=== PATIENT | male | born 1995 | race African-American/Black ===

== ENCOUNTER 2020-03-26 07:43 | Inpatient (IN) | payer OTHER, SELFPAY ==
[2020-03-26 08:14] LABS: Hemoglobin 17.6 g/dL (14.0-18.0); Mean Corpuscular HGB CONC 33.4 g/dL (32.0-36.0); Mean Corpuscular Hemoglobin 32.7 pg (27.0-31.0); Mean Corpuscular Volume 98.1 fL (78.0-98.0); Mean Platelet Volume 8.3 fL (7.4-10.4); Platelet Count 189 thou/uL (130-400); RBC Distribution Width 11.9 % (11.5-14.5); Red Blood Cell (RBC) Count 5.36 mill/uL (4.70-6.10); White Blood Cell (WBC) Count 6.7 thou/uL (4.8-10.8)
[2020-03-26] MEDS ORDERED: Dicyclomine 20 MG TAB ONE (08:31)
[2020-03-26 08:33] LABS: Bacteria/HPF None Seen HPF (None Seen); Bilirubin Negative (Negative); Blood, Urine Negative (Negative); Clarity Clear (Clear); Glucose, Urine (Dipstick) Normal (Negative); Ketone, Urine 80 mg/dL (Negative); Leukocyte Negative Leu/uL (Negative); Nitrite Negative (Negative); Protein, Urine (Dipstick) 50 mg/dL (Neg-Trace); RBC/HPF 0-3 HPF (0-3); Specific Gravity, Urine 1.039 (1.002-1.036); Squamous Epithelial 0-3 HPF (0-3); WBC/HPF 0-3 HPF (0-3)
[2020-03-26 08:37] LABS: ALT (SGPT) 50 U/L (8-55); AST (SGOT) 41 U/L (5-34); Albumin 4.9 g/dL (3.5-5.0); Alkaline Phosphatase 62 U/L (40-110); Anion Gap 17 mmol/L (10-20); BUN (Urea Nitrogen) 6 mg/dL (8.9-20.6); Bilirubin, Total 0.6 mg/dL (0.2-1.2); Calc. Creatinine Clearance 0 mL/min (70-130); Calcium 9.9 mg/dL (7.8-10.44); Carbon Dioxide 27 mmol/L (22-29); Chloride 98 mmol/L (98-107); Estimated GFR-MDRD Greater than 90; Globulin 3.6 g/dL (2.4-3.5); Glucose 102 mg/dL (70-105); Potassium 3.5 mmol/L (3.5-5.1); Protein, Total 8.5 g/dL (6.0-8.3); Sodium 138 mmol/L (136-145)
[2020-03-26 08:46] LABS: Band 6 % (5-11); Lymphocytes 9 % (21-51); MDiff Complete? YES; Monocytes 11 % (0-10); Neutrophil 73 % (42-75); Platelet Morphology Comment Appears Adequate; Polychromasia SLIGHT = 2-3 cells (100X) (0-2/hpf)
--- NOTE | 2020-03-26 09:28 | ULT ---
EXAM: US Gallbladder RUQ CLINICAL HISTORY: Right upper quadrant pain. COMPARISON: None. FINDINGS: Pancreas: Head and proximal pancreatic body have a normal echotexture. The remainder the pancreas is obscured by bowel gas. Liver:Hepatic parenchyma has a normal echotexture. No hepatic masses or intrahepatic biliary dilatati on. Right hepatic lobe: 15.3 cm Gallbladder: No sonographic evidence of cholelithiasis, gallbladder wall thickening or pericholecysti c fluid. Benson's sign:Negative Portal Vein: Patent. Appropriate directional flow Bile ducts: 0.4 cm common bile duct diameter Right kidney: No hydronephrosis. Right kidney measures 9.9 cm in length. IMPRESSION: No sonographic evidence of cholelithiasis or cholecystitis.
[2020-03-26] MEDS ORDERED: Acetaminophen 500 MG TAB ONE (10:06)
[2020-03-26] MEDS ORDERED: Ondansetron PF 4 MG/2 ML Vial ONE (10:49)
--- NOTE | 2020-03-26 10:51 | CT ---
EXAM: CT Abdomen Pelvis W Con PROVIDED CLINICAL HISTORY: Abdominal pain COMPARISON: None FINDINGS: The visualized lung bases are free of significant opacity. There is inflammatory fat stranding and noncircumscribed fluid about the uncinate process of the panc reas compatible with acute pancreatitis. Pancreatic enhancement is normal. The liver, spleen, kidneys and adrenal glands appear unremarkable. There is no bowel dilatation, additional inflammatory fat stranding or free air apparent. There is tr mayte free pelvic fluid. The appendix appears normal. The gallbladder is not significantly distended. The regional major vascular structures appear unremarkable. The osseous structures demonstrate no concerning lytic or blastic lesions. IMPRESSION: Findings compatible with focal pancreatitis of the uncinate process.
[2020-03-26] MEDS ORDERED: Morphine 4 MG/ML VIAL ONE (11:18)
[2020-03-26] MEDS ORDERED: Iopamidol-370 76% 500 ML 1 ML ONE (11:33)
[2020-03-26] MEDS ORDERED: Acetaminophen 325 MG TAB PO PRN (11:44)
[2020-03-26] MEDS ORDERED: Ondansetron PF 4 MG/2 ML Vial IVP PRN (11:44)
[2020-03-26] MEDS ORDERED: HYDROcodone/Acetaminophen 5/325 mg Tablet PO PRN (11:44)
[2020-03-26] MEDS ORDERED: Guaifenesin DM 100-10/5 ML UDCUP PO PRN (11:44)
[2020-03-26] MEDS ORDERED: Meperidine HCl/PF 25 MG/ML VIAL SLOW IVP PRN (11:44)
[2020-03-26] MEDS ORDERED: Calcium Carbonate 500 MG ChewTAB PO PRN (11:44)
[2020-03-26] MEDS ORDERED: Senokot S 8.6-50 MG TAB PO PRN (11:44)
[2020-03-26] MEDS ORDERED: Bisacodyl 10 MG SUPP PR PRN (11:44)
[2020-03-26 12:11] VITALS: BMI 28.0
[2020-03-26] MEDS: Sodium Chloride 0.9% 1,000 ML IV SCH ×4 (12:22→23:43)
--- NOTE | 2020-03-26 14:58 | HP ---
REASON FOR ADMISSION: Acute pancreatitis. HISTORY OF PRESENTING ILLNESS: The patient gives history of having both bilateral upper quadrant pain which started on Sunday. He initially thought he was constipated and took a laxative. He did pass stool after that. On , started to have bloating sensation. Yesterday, around 1:00 p.m., the upper quadrant pain started to get worse. It was 8 to 9/10 in intensity. Whenever he tried to eat anything, he would feel very nauseous and in fact vomited once. No blood in the vomitus or bile. Since then, the patient has not been able to keep anything down and his girlfriend told him to come to the emergency room to check it out. The patient admits to drinking 3 to 4 drinks of vodka and [place] alcoholic beverage around six pack daily. He states he drinks 4 days of the week. No complaints of cough, expectoration, fever, or exposure to COVID. No diarrhea. PAST MEDICAL AND SURGICAL HISTORY: None. CURRENT MEDICATIONS: None. ALLERGIES: NO KNOWN DRUG ALLERGIES. PERSONAL HISTORY: Drinks four times a week, vodka 3 to 4 drinks. He also drinks [place] alcoholic beverage six packs daily. Does not abuse drugs or smoke. Lives with his girlfriend. Works in construction. FAMILY HISTORY: Mother is living and healthy. He does not know much about his father. CODE STATUS: Full. Power of contract attorney is his mom. REVIEW OF SYSTEMS: CONSTITUTIONAL: Negative for weight loss or gain, ability to conduct usual activities. SKIN: Negative for rash, itching. EYES: Negative for double vision, pain. ENT/MOUTH: Negative for nose bleeding, neck stiffness, pain, tenderness. CARDIOVASCULAR: Negative for palpitations, dyspnea on exertion, orthopnea. RESPIRATORY: Negative for shortness of breath, wheezing, cough, hemoptysis, fever or night sweats. GASTROINTESTINAL: Negative for poor appetite, abdominal pain, heartburn, nausea, vomiting, constipation, or diarrhea. GENITOURINARY: Negative for urgency, frequency, dysuria, nocturia. MUSCULOSKELETAL: Negative for pain, swelling. NEUROLOGIC/PSYCHIATRIC: Negative for anxiety, depression. ALLERGY/IMMUNOLOGIC: Negative for skin rash, bleeding tendency. PHYSICAL EXAMINATION: GENERAL: The patient is a 24-year-old male, who is currently not in any acute distress. VITAL SIGNS: Blood pressure 146/94, pulse 66 per minute, respiratory rate 16 per minute, temperature 98.7 degrees Fahrenheit, saturating 99% on room air. NECK: Supple. No elevated JVD. HEENT: Eyes; extraocular muscles intact. Pupils reacting to light. Oral cavity, mucous membranes are dry. No exudates or congestion. CARDIOVASCULAR SYSTEM: S1 and S2 heard. Regular rhythm. RESPIRATORY SYSTEM: Air entry 2+ bilateral. No rales or rhonchi. ABDOMEN: Soft. There is mild tenderness in both upper quadrants. No rigidity or guarding. EXTREMITIES: No peripheral edema or calf tenderness. VASCULAR SYSTEM: Peripheral pulses 1+ bilateral. No ischemic ulcerations or gangrene. CENTRAL NERVOUS SYSTEM: No gross focal motor deficits noted. The patient is alert, awake, oriented well. PSYCHIATRIC SYSTEM: The patient's mood is euthymic. No hallucinations or delusions. LABS: Ultrasound right upper quadrant done shows no sonographic evidence of cholelithiasis or cholecystitis. CT of the abdomen and pelvis with contrast done, findings compatible with focal pancreatitis of the uncinate process. Total bilirubin is 0.6, AST 41, ALT 50, alkaline phosphatase 62, albumin 4.9. Lipase is 211. Electrolytes stable. BUN 6, creatinine 0.9. White count is 6, H and H 17 and 52, platelet count 189 with 73% neutrophils. CLINICAL IMPRESSION AND PLAN: The patient will be admitted to medical floor for alcohol induced pancreatitis. The patient will be placed on normal saline at 200 mL per hour. Meperidine p.r.n. for pain. We will obtain COVID-19 PCR as admission screening. Lipid profile in the morning. We will keep him n.p.o. for today and start clear liquids from tomorrow. He is hemodynamically stable at present. Mr. De Santiago was counseled against drinking any alcohol in view of current pancreatitis. It appears to be noncomplicated pancreatitis at present. Job ID: [id number]
[2020-03-26] MEDS: Morphine 2 MG/ML VIAL SLOW IVP PRN ×2 (15:04→20:06)
[2020-03-26 17:53] LABS: SARS-CoV-2 MS2 Positive; SARS-CoV-2 N Gene Negative; SARS-CoV-2 S Gene Negative; SARS-CoV-2 by NAA Not Detected (NotDetected); SARS-CoV-2 orf1ab Negative
[2020-03-26] MEDS ORDERED: Morphine 2 MG/ML VIAL SLOW IVP PRN (23:54)
[2020-03-27 04:30] LABS: #Eosinphils 0.1 thou/uL (0.0-0.7); #Lymphocytes 1.4 thou/uL (1.20-3.40); #Monocytes 0.6 thou/uL (0.11-0.59); #Neutrophils 2.2 thou/uL (1.40-6.50); %Basophils 0.8 % (0.0-1.0); %Eosinophils 2.7 % (0.0-10.0); %Lymphocytes 32.6 % (21.0-51.0); %Monocytes 14.2 % (0.0-10.0); %Neutrophils 49.8 % (42.0-75.0); Hemoglobin 14.8 g/dL (14.0-18.0); Mean Corpuscular HGB CONC 33.2 g/dL (32.0-36.0); Mean Corpuscular Hemoglobin 33.2 pg (27.0-31.0); Mean Corpuscular Volume 99.9 fL (78.0-98.0); Mean Platelet Volume 8.5 fL (7.4-10.4); Platelet Count 144 thou/uL (130-400); Red Blood Cell (RBC) Count 4.46 mill/uL (4.70-6.10); White Blood Cell (WBC) Count 4.3 thou/uL (4.8-10.8)
[2020-03-27 05:14] LABS: ALT (SGPT) 28 U/L (8-55); AST (SGOT) 22 U/L (5-34); Albumin 3.4 g/dL (3.5-5.0); Alkaline Phosphatase 41 U/L (40-110); Anion Gap 12 mmol/L (10-20); BUN (Urea Nitrogen) 5 mg/dL (8.9-20.6); Bilirubin, Total 0.5 mg/dL (0.2-1.2); Calc. Creatinine Clearance 152 mL/min (70-130); Calcium 8.5 mg/dL (7.8-10.44); Carbon Dioxide 25 mmol/L (22-29); Cardiac Risk 2.7 (Less than 4.5); Chloride 104 mmol/L (98-107); Cholesterol 145 mg/dl (< 200 Desired); Estimated GFR-MDRD Greater than 90; Globulin 2.7 g/dL (2.4-3.5); Glucose 85 mg/dL (70-105); HDL Cholesterol 53 mg/dL (>60 Neg Risk); LDL Cholesterol, Calculated 77 mg/dL; Potassium 3.8 mmol/L (3.5-5.1); Protein, Total 6.1 g/dL (6.0-8.3); Sodium 137 mmol/L (136-145); Triglycerides 74 mg/dL (Less than 150)
[2020-03-27] MEDS: Sodium Chloride 0.9% 1,000 ML IV SCH (07:14)
[2020-03-27 08:24] VITALS: BP 117/64; TEMP 98.6
[2020-03-27] MEDS ORDERED: Enoxaparin Sodium 40 MG/0.4 ML SYRINGE SC SCH (09:00)
--- NOTE | 2020-03-27 10:08 | PDOC.HOSPP ---
- Subjective Encounter Date: 03/27/20 Encounter Time: 10:03 Subjective: Mr. De Santiago was seen today in follow-up of acute pancreatitis. He does not have any complaints. He denies abdominal pain, no nausea or vomiting. - Objective Vital Signs & Weight: Vital Signs (12 hours) Temp Pulse Resp BP Pulse Ox 03/27/20 08:00 98.6 F 88 18 117/64 97 03/27/20 04:00 98.1 F 69 16 120/73 98 03/26/20 23:36 98.3 F 61 16 124/77 99 Weight Weight 173 lb 8 oz I&O: 03/26/20 03/27/20 03/28/20 06:59 06:59 06:59 Intake Total 3700 Balance 3700 Result Diagrams: 03/27/20 04:17 03/27/20 04:17 Hospitalist ROS - Medication Medications: Active Medications Generic Name Dose Route Start Last Admin Trade Name Freq PRN Reason Stop Dose Admin Enoxaparin Sodium 40 mg 03/27/20 09:00 03/27/20 09:02 Enoxaparin Sodium 40 Mg/0.4 Ml Syringe SC Not Given 0900 [facility] Sodium Chloride 10 ml 03/26/20 21:00 03/27/20 09:02 Flush - Normal Saline 10 Ml Syringe IVF Not Given Q12HR SONAM - Exam Eye: PERRL, anicteric sclera Heart: RRR, no murmur, no gallops, no rubs, normal peripheral pulses Respiratory: CTAB, no wheezes, no rales, no ronchi, normal chest expansion, no tachypnea, normal percussion Gastrointestinal: soft, non-tender, non-distended, normal bowel sounds, no palpable masses, no hepatomegaly Extremities: no cyanosis, no edema Hosp A/P (1) Acute pancreatitis Code(s): K85.90 - ACUTE PANCREATITIS WITHOUT NECROSIS OR INFECTION, UNSP Status: Acute (2) Alcohol abuse Code(s): F10.10 - ALCOHOL ABUSE, UNCOMPLICATED Status: Acute - Plan * Acute pancreatitis - resolving * Alcohol abuse- discussed the need to stop drinking * If he tolerates a solid diet, can discharge home with close follow-up with Dr. Pollard.
--- NOTE | 2020-03-28 02:50 | DIS ---
DATE OF ADMISSION: 03/26/2020 DATE OF DISCHARGE: 03/27/2020 PRIMARY CARE PHYSICIAN: DISCHARGE DIAGNOSIS: 1. Acute pancreatitis. 2. Alcohol abuse. DISCHARGE MEDICATIONS: None. CODE STATUS: Full code. ALLERGIES: NO KNOWN DRUG ALLERGIES. IMAGING DONE DURING THE HOSPITAL STAY: The patient had an abdominal ultrasound showing no evidence of cholelithiasis or acute cholecystitis. The patient had a CT scan of the abdomen and pelvis showing findings consistent with pancreatitis with inflammatory fat stranding about the uncinate process of the pancreas. HOSPITAL COURSE: Mr. De Santiago is a pleasant 24-year-old gentleman who presented to the emergency room with complaints of severe abdominal pain. He has a history of alcohol abuse. He was found to have an elevated lipase at 211 with normal triglyceride level. Abdominal ultrasound did not show evidence of gallstones. The patient admitted to the admitting physician that he tends to drink excessively. He was consulted on the need to quit or at least cut back on his alcohol intake. He was placed on bowel rest and his symptoms of pancreatitis resolved quickly overnight. We were able to advance his diet and he was subsequently able to be discharged home and to follow up with Job ID: [id number]
== END 2020-03-27 14:41 | disposition home or self-care (01) | DRG 440 ==
LOC: ERS 07:43 → ONC 11:15
PROVIDERS: ADMIT Internal Medicine; ATTEND Internal Medicine
DX: K85.20 Alcohol induced acute pancreatitis without necrosis or infection (principal); F10.10 Alcohol abuse, uncomplicated; Z20.828 Contact with and (suspected) exposure to other viral communicable diseases
CPT/HCPCS: 36415; 74177; 76705; 80053; 80061; 81003; 81015; 83690; 85025; 87635; 96374; 96375; J0500; J2270; J2405; Q9967; U0003

== ENCOUNTER 2021-06-29 07:15 | Inpatient (IN) | payer SELFPAY ==
[2021-06-29 08:27] LABS: #Lymphocytes 0.9 thou/uL (1.20-3.40); #Monocytes 0.4 thou/uL (0.11-0.59); #Neutrophils 9.5 thou/uL (1.40-6.50); %Basophils 0.1 % (0.0-1.0); %Eosinophils 0.4 % (0.0-10.0); %Lymphocytes 8.2 % (21.0-51.0); %Monocytes 3.3 % (0.0-10.0); Hemoglobin 17.1 g/dL (14.0-18.0); Mean Corpuscular HGB CONC 33.1 g/dL (32.0-36.0); Mean Corpuscular Hemoglobin 31.1 pg (27.0-31.0); Mean Corpuscular Volume 93.8 fL (78.0-98.0); Mean Platelet Volume 7.9 fL (7.4-10.4); Platelet Count 230 thou/uL (130-400); White Blood Cell (WBC) Count 10.8 thou/uL (4.8-10.8)
[2021-06-29] MEDS ORDERED: Ondansetron PF 4 MG/2 ML Vial ONE ×2 (08:30→15:26)
[2021-06-29] MEDS ORDERED: Morphine 4 MG/ML VIAL ONE ×2 (08:30→10:09)
[2021-06-29 08:47] LABS: ALT (SGPT) 13 U/L (8-55); AST (SGOT) 24 U/L (5-34); Albumin 4.4 g/dL (3.5-5.0); Alkaline Phosphatase 58 U/L (40-110); Anion Gap 15 mmol/L (10-20); BUN (Urea Nitrogen) 14 mg/dL (8.9-20.6); Bilirubin, Total 0.7 mg/dL (0.2-1.2); Calc. Creatinine Clearance 0 mL/min (70-130); Calcium 10.1 mg/dL (7.8-10.44); Carbon Dioxide 27 mmol/L (22-29); Chloride 97 mmol/L (98-107); Globulin 3.9 g/dL (2.4-3.5); Glucose 108 mg/dL (70-105); Potassium 4.3 mmol/L (3.5-5.1); Protein, Total 8.3 g/dL (6.0-8.3); Sodium 135 mmol/L (136-145)
[2021-06-29 09:01] LABS: Lipase 1689 U/L (8-78)
[2021-06-29 10:13] LABS: Magnesium 1.8 mg/dL (1.6-2.6); Phosphorus 2.8 mg/dL (2.3-4.7)
[2021-06-29] MEDS ORDERED: Ondansetron ODT 4 MG TAB PO PRN (10:38)
[2021-06-29] MEDS ORDERED: Senokot S 8.6-50 MG TAB PO PRN (10:38)
[2021-06-29] MEDS ORDERED: Calcium Carbonate 500 MG ChewTAB PO PRN (10:38)
[2021-06-29] MEDS ORDERED: Ondansetron PF 4 MG/2 ML Vial IVP PRN (10:38)
[2021-06-29 10:41] LABS: Bacteria/HPF None Seen HPF (None Seen); Bilirubin Negative (Negative); Blood, Urine Negative (Negative); Clarity Clear (Clear); Glucose, Urine (Dipstick) Normal (Negative); Ketone, Urine Greater than 150 mg/dL (Negative); Leukocyte Negative Leu/uL (Negative); Nitrite Negative (Negative); Protein, Urine (Dipstick) 50 mg/dL (Neg-Trace); RBC/HPF 0-3 HPF (0-3); Specific Gravity, Urine 1.044 (1.002-1.036); Squamous Epithelial 0-3 HPF (0-3); WBC/HPF 0-3 HPF (0-3)
[2021-06-29] MEDS ORDERED: Magnesium 2 GM/50 ML 2 GM in Premix Bag 1 BAG IVPB SCH (11:15)
[2021-06-29] MEDS ORDERED: Magnesium 2 GM/50 ML BAG (IN WATER) ONE (11:44)
[2021-06-29] MEDS ORDERED: Folic Acid 1 MG TAB ONE (12:28)
[2021-06-29] MEDS ORDERED: Thiamine 100 MG TAB ONE (12:28)
[2021-06-29] MEDS ORDERED: NS 0.9% w/ 20 MEQ KCL 0 ML ONE (12:28)
[2021-06-29] MEDS ORDERED: D5 1/2 NS w/20 mEq KCL 0 ML ONE (12:29)
[2021-06-29] MEDS: Thiamine 100 MG TAB PO SCH (12:37)
[2021-06-29] MEDS: Folic Acid 1 MG TAB PO SCH (12:37)
[2021-06-29] MEDS: Multivit, Therapeutic 1 TAB PO SCH (13:17)
[2021-06-29] MEDS: D5 0.9% NS w/ 20 mEq KCl 1,000 ML IV SCH ×2 (13:17→19:29)
[2021-06-29] MEDS: HYDROcodone/Acetaminophen 5/325 mg Tablet PO PRN ×2 (13:20→19:28)
[2021-06-29] MEDS ORDERED: HYDROcodone/Acetaminophen 5/325 mg Tablet ONE (13:22)
[2021-06-29 16:46] LABS: SARS-CoV-2 NAA Rapid Test Not Detected (NotDetected)
[2021-06-29] MEDS: Morphine 4 MG/ML VIAL SLOW IVP PRN ×2 (17:27→21:29)
[2021-06-29] MEDS: Famotidine 20 MG TAB PO SCH (20:53)
[2021-06-29 20:55] VITALS: BMI 27.3
[2021-06-29] MEDS: Famotidine/PF 20 mg/2ml Vial SLOW IVP SCH (21:29)
[2021-06-30] MEDS: Morphine 4 MG/ML VIAL SLOW IVP PRN ×2 (00:53→07:46)
[2021-06-30] MEDS: HYDROcodone/Acetaminophen 5/325 mg Tablet PO PRN ×4 (01:46→20:24)
[2021-06-30] MEDS: D5 0.9% NS w/ 20 mEq KCl 1,000 ML IV SCH ×4 (01:46→21:13)
[2021-06-30 05:42] LABS: #Eosinphils 0.1 thou/uL (0.0-0.7); #Lymphocytes 1.7 thou/uL (1.20-3.40); #Neutrophils 6.3 thou/uL (1.40-6.50); %Basophils 0.2 % (0.0-1.0); %Eosinophils 0.9 % (0.0-10.0); %Monocytes 11.2 % (0.0-10.0); %Neutrophils 68.7 % (42.0-75.0); Hemoglobin 15.1 g/dL (14.0-18.0); Mean Corpuscular HGB CONC 33.1 g/dL (32.0-36.0); Mean Corpuscular Hemoglobin 31.2 pg (27.0-31.0); Mean Corpuscular Volume 94.4 fL (78.0-98.0); Mean Platelet Volume 7.5 fL (7.4-10.4); Platelet Count 190 thou/uL (130-400); Red Blood Cell (RBC) Count 4.84 mill/uL (4.70-6.10); White Blood Cell (WBC) Count 9.2 thou/uL (4.8-10.8)
[2021-06-30 06:05] LABS: ALT (SGPT) 7 U/L (8-55); AST (SGOT) 15 U/L (5-34); Albumin 3.3 g/dL (3.5-5.0); Alkaline Phosphatase 44 U/L (40-110); Anion Gap 9 mmol/L (10-20); BUN (Urea Nitrogen) 6 mg/dL (8.9-20.6); Bilirubin, Total 0.7 mg/dL (0.2-1.2); Calc. Creatinine Clearance 174 mL/min (70-130); Calcium 8.7 mg/dL (7.8-10.44); Carbon Dioxide 26 mmol/L (22-29); Chloride 104 mmol/L (98-107); Globulin 2.9 g/dL (2.4-3.5); Glucose 109 mg/dL (70-105); Magnesium 1.8 mg/dL (1.6-2.6); Phosphorus 2.3 mg/dL (2.3-4.7); Protein, Total 6.2 g/dL (6.0-8.3); Sodium 135 mmol/L (136-145)
[2021-06-30] MEDS: Famotidine/PF 20 mg/2ml Vial SLOW IVP SCH (07:46)
[2021-06-30] MEDS: Famotidine 20 MG TAB PO SCH ×2 (07:51→21:12)
[2021-06-30] MEDS: Thiamine 100 MG TAB PO SCH (11:00)
[2021-06-30] MEDS: Multivit, Therapeutic 1 TAB PO SCH (11:01)
[2021-06-30] MEDS: Folic Acid 1 MG TAB PO SCH (11:01)
[2021-07-01] MEDS: HYDROcodone/Acetaminophen 5/325 mg Tablet PO PRN ×2 (01:58→09:19)
[2021-07-01] MEDS: D5 0.9% NS w/ 20 mEq KCl 1,000 ML IV SCH ×2 (03:15→12:47)
[2021-07-01 05:05] LABS: #Eosinphils 0.2 thou/uL (0.0-0.7); #Lymphocytes 2.1 thou/uL (1.20-3.40); #Monocytes 0.8 thou/uL (0.11-0.59); #Neutrophils 3.8 thou/uL (1.40-6.50); %Basophils 0.5 % (0.0-1.0); %Eosinophils 3.5 % (0.0-10.0); %Lymphocytes 30.3 % (21.0-51.0); %Monocytes 11.7 % (0.0-10.0); Mean Corpuscular HGB CONC 34.8 g/dL (32.0-36.0); Mean Corpuscular Volume 94.6 fL (78.0-98.0); Mean Platelet Volume 7.7 fL (7.4-10.4); Platelet Count 165 thou/uL (130-400); RBC Distribution Width 12.1 % (11.5-14.5); Red Blood Cell (RBC) Count 4.55 mill/uL (4.70-6.10)
[2021-07-01 05:22] LABS: ALT (SGPT) Less than 7 U/L (8-55); AST (SGOT) 13 U/L (5-34); Albumin 3.4 g/dL (3.5-5.0); Alkaline Phosphatase 42 U/L (40-110); Anion Gap 8 mmol/L (10-20); BUN (Urea Nitrogen) 4 mg/dL (8.9-20.6); Bilirubin, Total 0.7 mg/dL (0.2-1.2); Calc. Creatinine Clearance 170 mL/min (70-130); Calcium 9.1 mg/dL (7.8-10.44); Carbon Dioxide 29 mmol/L (22-29); Chloride 101 mmol/L (98-107); Globulin 3.2 g/dL (2.4-3.5); Glucose 92 mg/dL (70-105); Lipase 986 U/L (8-78); Potassium 3.7 mmol/L (3.5-5.1); Protein, Total 6.6 g/dL (6.0-8.3); Sodium 134 mmol/L (136-145)
[2021-07-01] MEDS: Famotidine 20 MG TAB PO SCH (09:20)
[2021-07-01] MEDS: Thiamine 100 MG TAB PO SCH (12:42)
[2021-07-01] MEDS: Multivit, Therapeutic 1 TAB PO SCH (12:42)
[2021-07-01] MEDS: Folic Acid 1 MG TAB PO SCH (12:42)
[2021-07-01 15:00] VITALS: BP 127/75; TEMP 98
== END 2021-07-01 14:55 | disposition home or self-care (01) | DRG 439 ==
LOC: ERS 07:15 → ERHOLD 09:57 → SURG A 16:31
PROVIDERS: ADMIT Internal Medicine; ATTEND Family Medicine
DX: K85.20 Alcohol induced acute pancreatitis without necrosis or infection (principal); E87.1 Hypo-osmolality and hyponatremia; E86.0 Dehydration; Z20.822 Contact with and (suspected) exposure to COVID-19
CPT/HCPCS: 36415; 80053; 81003; 81015; 83690; 83735; 84100; 85025; 96374; 96375; 96376; J2270; J2405; J3475; J3480; S0028; U0002

== ENCOUNTER 2021-08-31 11:35 | Inpatient (IN) | payer SELFPAY ==
[~2021-08-31 11:35] MED LIST: Iopamidol-370 76% 500 ML 1 ML ONE
[2021-08-31] MEDS ORDERED: Morphine 4 MG/ML VIAL ONE ×2 (12:40→14:53)
[2021-08-31] MEDS ORDERED: Ketorolac Tromethamine 30 MG/ML VIAL ONE (12:41)
[2021-08-31] MEDS ORDERED: Ondansetron PF 4 MG/2 ML Vial ONE (12:41)
[2021-08-31 13:01] LABS: #Eosinphils 0.1 thou/uL (0.0-0.7); #Lymphocytes 1.4 thou/uL (1.20-3.40); #Monocytes 0.6 thou/uL (0.11-0.59); #Neutrophils 6.8 thou/uL (1.40-6.50); %Basophils 0.2 % (0.0-1.0); %Eosinophils 1.3 % (0.0-10.0); %Lymphocytes 15.7 % (21.0-51.0); %Monocytes 7.2 % (0.0-10.0); %Neutrophils 75.7 % (42.0-75.0); Hemoglobin 15.8 g/dL (14.0-18.0); Mean Corpuscular HGB CONC 32.7 g/dL (32.0-36.0); Mean Corpuscular Hemoglobin 31.4 pg (27.0-31.0); Mean Corpuscular Volume 96.1 fL (78.0-98.0); Mean Platelet Volume 7.6 fL (7.4-10.4); Platelet Count 213 thou/uL (130-400); RBC Distribution Width 12.6 % (11.5-14.5); Red Blood Cell (RBC) Count 5.02 mill/uL (4.70-6.10); White Blood Cell (WBC) Count 8.9 thou/uL (4.8-10.8)
[2021-08-31 13:28] LABS: ALT (SGPT) 13 U/L (8-55); AST (SGOT) 20 U/L (5-34); Albumin 4.1 g/dL (3.5-5.0); Alkaline Phosphatase 47 U/L (40-110); Anion Gap 11 mmol/L (10-20); BUN (Urea Nitrogen) 11 mg/dL (8.9-20.6); Bilirubin, Total 0.7 mg/dL (0.2-1.2); Calc. Creatinine Clearance 0 mL/min (70-130); Calcium 9.2 mg/dL (7.8-10.44); Carbon Dioxide 28 mmol/L (22-29); Chloride 98 mmol/L (98-107); Globulin 3.1 g/dL (2.4-3.5); Glucose 93 mg/dL (70-105); Potassium 4.4 mmol/L (3.5-5.1); Protein, Total 7.2 g/dL (6.0-8.3); Sodium 133 mmol/L (136-145)
[2021-08-31 13:41] LABS: Lipase 2608 U/L (8-78)
[2021-08-31] MEDS ORDERED: Ondansetron PF 4 MG/2 ML Vial IVP PRN (15:50)
[2021-08-31] MEDS ORDERED: hydrALAZINE 20 MG/ML VIAL SLOW IVP PRN (15:50)
[2021-08-31] MEDS ORDERED: Acetaminophen 325 MG TAB PO PRN (15:50)
[2021-08-31 16:57] VITALS: BMI 27.7
[2021-08-31] MEDS: Ketorolac Tromethamine 30 MG/ML VIAL IVP PRN (17:16)
[2021-08-31] MEDS: Lactated Ringer's 1,000 ML IV SCH ×2 (17:21→22:13)
[2021-08-31] MEDS: Morphine 4 MG/ML VIAL SLOW IVP PRN ×2 (18:49→23:54)
[2021-08-31] MEDS ORDERED: HYDROmorphone 0.5 MG/0.5 ML SYRINGE SLOW IVP SCH (22:00)
[2021-08-31 22:06] LABS: SARS-CoV-2 PCR by NAA Not Detected (NotDetected)
[2021-09-01] MEDS: Ketorolac Tromethamine 30 MG/ML VIAL IVP PRN (02:53)
[2021-09-01] MEDS: Lactated Ringer's 1,000 ML IV SCH ×4 (03:07→21:12)
[2021-09-01] MEDS: Morphine 4 MG/ML VIAL SLOW IVP PRN ×4 (05:41→22:08)
[2021-09-01 06:50] LABS: #Lymphocytes 1.1 thou/uL (1.20-3.40); #Monocytes 0.8 thou/uL (0.11-0.59); #Neutrophils 7.8 thou/uL (1.40-6.50); %Basophils 0.2 % (0.0-1.0); %Eosinophils 0.3 % (0.0-10.0); %Lymphocytes 11.4 % (21.0-51.0); %Monocytes 8.4 % (0.0-10.0); %Neutrophils 79.7 % (42.0-75.0); Hemoglobin 14.9 g/dL (14.0-18.0); Mean Corpuscular HGB CONC 32.5 g/dL (32.0-36.0); Mean Corpuscular Hemoglobin 31.3 pg (27.0-31.0); Mean Corpuscular Volume 96.2 fL (78.0-98.0); Mean Platelet Volume 7.9 fL (7.4-10.4); Platelet Count 184 thou/uL (130-400); RBC Distribution Width 12.4 % (11.5-14.5); Red Blood Cell (RBC) Count 4.78 mill/uL (4.70-6.10); White Blood Cell (WBC) Count 9.8 thou/uL (4.8-10.8)
[2021-09-01 07:09] LABS: Anion Gap 13 mmol/L (10-20); BUN (Urea Nitrogen) 10 mg/dL (8.9-20.6); Calc. Creatinine Clearance 169 mL/min (70-130); Carbon Dioxide 24 mmol/L (22-29); Chloride 101 mmol/L (98-107); Cholesterol 144 mg/dl (< 200 Desired); Glucose 97 mg/dL (70-105); HDL Cholesterol 48 mg/dL (>60 Neg Risk); LDL Cholesterol, Calculated 87 mg/dL; Potassium 4.3 mmol/L (3.5-5.1); Sodium 134 mmol/L (136-145); Triglycerides 43 mg/dL (Less than 150)
[2021-09-01 07:22] LABS: Lipase 1981 U/L (8-78)
[2021-09-01] MEDS ORDERED: HYDROcodone/Acetaminophen 5/325 mg Tablet PO PRN (10:36)
[2021-09-01] MEDS ORDERED: Pantoprazole 40 MG VIAL IVP SCH (10:45)
[2021-09-01] MEDS: HYDROcodone/Acetaminophen 10/325 mg Tablet PO PRN ×2 (11:21→20:43)
[2021-09-01] MEDS: Multivitamins, Adult 10 ML, Folic Acid 1 MG in Dextrose 5 %-0.45 % NaCl 1,000 ML IV SCH (19:47)
[2021-09-01] MEDS: Thiamine HCl 200 MG/2 ML VIAL SLOW IVP SCH (19:48)
[2021-09-02] MEDS: Lactated Ringer's 1,000 ML IV SCH ×4 (01:14→20:08)
[2021-09-02] MEDS: HYDROcodone/Acetaminophen 10/325 mg Tablet PO PRN ×3 (02:49→20:01)
[2021-09-02 06:19] LABS: #Eosinphils 0.3 thou/uL (0.0-0.7); #Lymphocytes 2.1 thou/uL (1.20-3.40); #Neutrophils 4.3 thou/uL (1.40-6.50); %Basophils 0.4 % (0.0-1.0); %Eosinophils 3.4 % (0.0-10.0); %Lymphocytes 27.8 % (21.0-51.0); %Monocytes 12.4 % (0.0-10.0); %Neutrophils 55.9 % (42.0-75.0); Mean Corpuscular HGB CONC 34.5 g/dL (32.0-36.0); Mean Corpuscular Hemoglobin 33.7 pg (27.0-31.0); Mean Corpuscular Volume 97.6 fL (78.0-98.0); Mean Platelet Volume 7.5 fL (7.4-10.4); Platelet Count 167 thou/uL (130-400); RBC Distribution Width 12.5 % (11.5-14.5); Red Blood Cell (RBC) Count 4.16 mill/uL (4.70-6.10); White Blood Cell (WBC) Count 7.6 thou/uL (4.8-10.8)
[2021-09-02 06:44] LABS: ALT (SGPT) 9 U/L (8-55); AST (SGOT) 16 U/L (5-34); Albumin 3.5 g/dL (3.5-5.0); Alkaline Phosphatase 39 U/L (40-110); Anion Gap 11 mmol/L (10-20); BUN (Urea Nitrogen) 6 mg/dL (8.9-20.6); Bilirubin, Total 0.9 mg/dL (0.2-1.2); Calc. Creatinine Clearance 155 mL/min (70-130); Calcium 9.3 mg/dL (7.8-10.44); Carbon Dioxide 28 mmol/L (22-29); Chloride 100 mmol/L (98-107); Glucose 84 mg/dL (70-105); Lipase 560 U/L (8-78); Magnesium 1.8 mg/dL (1.6-2.6); Phosphorus 2.9 mg/dL (2.3-4.7); Protein, Total 6.5 g/dL (6.0-8.3); Sodium 135 mmol/L (136-145)
[2021-09-02] MEDS: Pantoprazole 40 MG VIAL IVP SCH (08:06)
[2021-09-02 08:53] VITALS: TEMP 98.5
[2021-09-02] MEDS: Multivitamins, Adult 10 ML, Folic Acid 1 MG in Dextrose 5 %-0.45 % NaCl 1,000 ML IV SCH (16:09)
[2021-09-02] MEDS: Thiamine HCl 200 MG/2 ML VIAL SLOW IVP SCH (16:09)
[2021-09-03] MEDS: Lactated Ringer's 1,000 ML IV SCH (03:16)
[2021-09-03 06:01] LABS: #Basophils 0.1 thou/uL (0.0-0.2); #Eosinphils 0.3 thou/uL (0.0-0.7); #Lymphocytes 1.8 thou/uL (1.20-3.40); #Monocytes 0.6 thou/uL (0.11-0.59); #Neutrophils 2.4 thou/uL (1.40-6.50); %Basophils 1.1 % (0.0-1.0); %Lymphocytes 34.9 % (21.0-51.0); %Monocytes 11.1 % (0.0-10.0); %Neutrophils 47.9 % (42.0-75.0); Hemoglobin 14.3 g/dL (14.0-18.0); Mean Corpuscular HGB CONC 32.9 g/dL (32.0-36.0); Mean Corpuscular Hemoglobin 31.8 pg (27.0-31.0); Mean Corpuscular Volume 96.8 fL (78.0-98.0); Mean Platelet Volume 7.8 fL (7.4-10.4); Platelet Count 182 thou/uL (130-400); RBC Distribution Width 12.4 % (11.5-14.5); White Blood Cell (WBC) Count 5.1 thou/uL (4.8-10.8)
[2021-09-03 06:24] LABS: Anion Gap 13 mmol/L (10-20); BUN (Urea Nitrogen) 6 mg/dL (8.9-20.6); Calc. Creatinine Clearance 160 mL/min (70-130); Calcium 9.1 mg/dL (7.8-10.44); Carbon Dioxide 25 mmol/L (22-29); Chloride 102 mmol/L (98-107); Glucose 87 mg/dL (70-105); Lipase 225 U/L (8-78); Potassium 3.8 mmol/L (3.5-5.1); Sodium 136 mmol/L (136-145)
[2021-09-03 07:43] VITALS: BP 119/77
[2021-09-03] MEDS: Pantoprazole 40 MG VIAL IVP SCH (07:50)
== END 2021-09-03 16:10 | disposition home or self-care (01) | DRG 439 ==
LOC: ERS 11:35 → T4-B 14:35 → OBSVTOIN 09-01 10:38
PROVIDERS: ADMIT Internal Medicine; ATTEND Family Medicine
DX: K85.20 Alcohol induced acute pancreatitis without necrosis or infection (principal); E87.1 Hypo-osmolality and hyponatremia; E86.0 Dehydration; Z20.822 Contact with and (suspected) exposure to COVID-19; F10.10 Alcohol abuse, uncomplicated; Z71.41 Alcohol abuse counseling and surveillance of alcoholic
CPT/HCPCS: 36415; 74177; 80048; 80053; 80061; 83690; 83735; 84100; 84478; 85025; 96374; 96375; 96376; C9113; G0378; J1170; J1885; J2270; J2405; J3411; J7042; J7120; Q9967; U0003; U0005

== ENCOUNTER 2021-10-22 17:49 | Inpatient (IN) | payer SELFPAY ==
[2021-10-22] MEDS ORDERED: Morphine 4 MG/ML VIAL ONE ×2 (18:45→21:06)
[2021-10-22] MEDS ORDERED: Ondansetron PF 4 MG/2 ML Vial ONE (18:45)
[2021-10-22 18:53] LABS: #Basophils 0.1 thou/uL (0.0-0.2); #Eosinphils 0.2 thou/uL (0.0-0.7); #Lymphocytes 2.7 thou/uL (1.20-3.40); #Neutrophils 9.3 thou/uL (1.40-6.50); %Basophils 0.5 % (0.0-1.0); %Eosinophils 1.2 % (0.0-10.0); %Lymphocytes 20.1 % (21.0-51.0); %Monocytes 7.9 % (0.0-10.0); %Neutrophils 70.3 % (42.0-75.0); Hemoglobin 17.3 g/dL (14.0-18.0); Mean Corpuscular HGB CONC 33.1 g/dL (32.0-36.0); Mean Corpuscular Hemoglobin 31.4 pg (27.0-31.0); Mean Platelet Volume 7.4 fL (7.4-10.4); Platelet Count 232 thou/uL (130-400); RBC Distribution Width 12.6 % (11.5-14.5); Red Blood Cell (RBC) Count 5.52 mill/uL (4.70-6.10); White Blood Cell (WBC) Count 13.2 thou/uL (4.8-10.8)
[2021-10-22 19:25] LABS: ALT (SGPT) 16 U/L (8-55); AST (SGOT) 26 U/L (5-34); Albumin 4.6 g/dL (3.5-5.0); Alkaline Phosphatase 69 U/L (40-110); Anion Gap 16 mmol/L (10-20); BUN (Urea Nitrogen) 8 mg/dL (8.9-20.6); Bilirubin, Total 0.6 mg/dL (0.2-1.2); Calc. Creatinine Clearance 0 mL/min (70-130); Calcium 9.8 mg/dL (7.8-10.44); Carbon Dioxide 24 mmol/L (22-29); Chloride 102 mmol/L (98-107); Globulin 3.7 g/dL (2.4-3.5); Glucose 127 mg/dL (70-105); Potassium 3.5 mmol/L (3.5-5.1); Protein, Total 8.3 g/dL (6.0-8.3); Sodium 138 mmol/L (136-145)
[2021-10-22] MEDS ORDERED: Ketorolac Tromethamine 30 MG/ML VIAL ONE (19:36)
[2021-10-22 19:38] LABS: Lipase 2651 U/L (8-78)
[2021-10-22] MEDS ORDERED: Promethazine HCl 25 MG/ML VIAL ONE (21:06)
[2021-10-22] MEDS ORDERED: Ondansetron PF 4 MG/2 ML Vial IVP PRN (21:36)
[2021-10-22] MEDS ORDERED: Lorazepam 2 MG/ML VIAL SLOW IVP PRN (21:39)
[2021-10-22 23:01] VITALS: BMI 29.5
[2021-10-23] MEDS: Morphine 4 MG/ML VIAL SLOW IVP PRN ×5 (00:06→20:11)
[2021-10-23] MEDS: Ketorolac Tromethamine 30 MG/ML VIAL IM PRN ×4 (01:14→23:38)
[2021-10-23 07:29] LABS: #Monocytes 0.9 thou/uL (0.11-0.59); #Neutrophils 10.3 thou/uL (1.40-6.50); %Basophils 0.1 % (0.0-1.0); %Eosinophils 0.4 % (0.0-10.0); %Lymphocytes 7.8 % (21.0-51.0); %Monocytes 7.6 % (0.0-10.0); %Neutrophils 84.1 % (42.0-75.0); Hemoglobin 16.4 g/dL (14.0-18.0); Mean Corpuscular HGB CONC 32.8 g/dL (32.0-36.0); Mean Corpuscular Hemoglobin 31.6 pg (27.0-31.0); Mean Corpuscular Volume 96.2 fL (78.0-98.0); Mean Platelet Volume 7.8 fL (7.4-10.4); Platelet Count 180 thou/uL (130-400); RBC Distribution Width 12.5 % (11.5-14.5); Red Blood Cell (RBC) Count 5.19 mill/uL (4.70-6.10); White Blood Cell (WBC) Count 12.3 thou/uL (4.8-10.8)
[2021-10-23 07:30] LABS: ALT (SGPT) 13 U/L (8-55); AST (SGOT) 25 U/L (5-34); Albumin 3.9 g/dL (3.5-5.0); Alkaline Phosphatase 51 U/L (40-110); Anion Gap 15 mmol/L (10-20); BUN (Urea Nitrogen) 6 mg/dL (8.9-20.6); Bilirubin, Total 0.6 mg/dL (0.2-1.2); Calc. Creatinine Clearance 169 mL/min (70-130); Calcium 8.9 mg/dL (7.8-10.44); Carbon Dioxide 25 mmol/L (22-29); Chloride 99 mmol/L (98-107); Globulin 3.2 g/dL (2.4-3.5); Glucose 122 mg/dL (70-105); Potassium 4.1 mmol/L (3.5-5.1); Protein, Total 7.1 g/dL (6.0-8.3); Sodium 135 mmol/L (136-145)
[2021-10-23 07:43] LABS: Lipase 1657 U/L (8-78)
[2021-10-23] MEDS: Famotidine/PF 20 mg/2ml Vial SLOW IVP SCH ×2 (07:49→20:11)
[2021-10-23] MEDS: Sodium Chloride 0.9% 1,000 ML IV SCH ×2 (10:45→16:05)
[2021-10-23 16:19] LABS: SARS-CoV-2 PCR by NAA Not Detected (NotDetected)
[2021-10-24] MEDS: Sodium Chloride 0.9% 1,000 ML IV SCH ×3 (02:55→18:10)
[2021-10-24] MEDS: Morphine 4 MG/ML VIAL SLOW IVP PRN (04:11)
[2021-10-24] MEDS: Ketorolac Tromethamine 30 MG/ML VIAL IM PRN (05:43)
[2021-10-24] MEDS: Famotidine/PF 20 mg/2ml Vial SLOW IVP SCH ×2 (08:22→21:05)
[2021-10-24] MEDS: Morphine 2 MG/ML VIAL SLOW IVP PRN ×2 (09:46→18:13)
[2021-10-24 10:17] LABS: ALT (SGPT) 9 U/L (8-55); AST (SGOT) 21 U/L (5-34); Albumin 3.4 g/dL (3.5-5.0); Alkaline Phosphatase 42 U/L (40-110); Anion Gap 15 mmol/L (10-20); BUN (Urea Nitrogen) 7 mg/dL (8.9-20.6); Bilirubin, Total 0.8 mg/dL (0.2-1.2); Calc. Creatinine Clearance 165 mL/min (70-130); Calcium 8.5 mg/dL (7.8-10.44); Carbon Dioxide 22 mmol/L (22-29); Chloride 103 mmol/L (98-107); Glucose 88 mg/dL (70-105); Magnesium 1.6 mg/dL (1.6-2.6); Potassium 3.8 mmol/L (3.5-5.1); Protein, Total 6.4 g/dL (6.0-8.3); Sodium 136 mmol/L (136-145)
[2021-10-24 12:15] LABS: Phosphorus 1.8 mg/dL (2.3-4.7)
[2021-10-24] MEDS ORDERED: Electrolyte Replacement Protocol 1 EACH FS SCH (12:30)
[2021-10-24] MEDS ORDERED: Electrolyte Replacement Protocol FS PRN (12:30)
[2021-10-24] MEDS: Ketorolac Tromethamine 30 MG/ML VIAL IVP PRN ×2 (13:29→21:05)
[2021-10-24] MEDS ORDERED: Magnesium 2 GM/50 ML(in water) 2 GM in Premix Bag 1 BAG IVPB SCH (14:00)
[2021-10-24] MEDS ORDERED: Potassium Phosphate 15 MMOL in Sodium Chloride 0.9% 100 ML IVPB SCH (14:00)
[2021-10-25] MEDS: Morphine 2 MG/ML VIAL SLOW IVP PRN ×3 (00:56→20:16)
[2021-10-25] MEDS: Sodium Chloride 0.9% 1,000 ML IV SCH ×3 (01:00→17:20)
[2021-10-25] MEDS: Ketorolac Tromethamine 30 MG/ML VIAL IVP PRN ×3 (04:27→17:14)
[2021-10-25 06:51] LABS: #Eosinphils 0.2 thou/uL (0.0-0.7); #Lymphocytes 1.6 thou/uL (1.20-3.40); #Monocytes 1.1 thou/uL (0.11-0.59); #Neutrophils 5.6 thou/uL (1.40-6.50); %Basophils 0.3 % (0.0-1.0); %Eosinophils 2.4 % (0.0-10.0); %Lymphocytes 18.6 % (21.0-51.0); %Monocytes 12.6 % (0.0-10.0); %Neutrophils 66.1 % (42.0-75.0); Hemoglobin 13.1 g/dL (14.0-18.0); Mean Corpuscular HGB CONC 33.2 g/dL (32.0-36.0); Mean Corpuscular Hemoglobin 32.3 pg (27.0-31.0); Mean Corpuscular Volume 97.2 fL (78.0-98.0); Mean Platelet Volume 7.4 fL (7.4-10.4); Platelet Count 133 thou/uL (130-400); RBC Distribution Width 12.2 % (11.5-14.5); Red Blood Cell (RBC) Count 4.06 mill/uL (4.70-6.10); White Blood Cell (WBC) Count 8.5 thou/uL (4.8-10.8)
[2021-10-25 07:12] LABS: ALT (SGPT) 8 U/L (8-55); AST (SGOT) 16 U/L (5-34); Albumin 3.2 g/dL (3.5-5.0); Alkaline Phosphatase 39 U/L (40-110); Anion Gap 11 mmol/L (10-20); BUN (Urea Nitrogen) 8 mg/dL (8.9-20.6); Bilirubin, Total 0.9 mg/dL (0.2-1.2); Calc. Creatinine Clearance 171 mL/min (70-130); Calcium 8.3 mg/dL (7.8-10.44); Carbon Dioxide 24 mmol/L (22-29); Chloride 104 mmol/L (98-107); Globulin 2.8 g/dL (2.4-3.5); Glucose 105 mg/dL (70-105); Lipase 201 U/L (8-78); Magnesium 2.1 mg/dL (1.6-2.6); Potassium 3.7 mmol/L (3.5-5.1); Sodium 135 mmol/L (136-145)
[2021-10-25 07:15] LABS: Phosphorus 1.9 mg/dL (2.3-4.7)
[2021-10-25] MEDS: Famotidine/PF 20 mg/2ml Vial SLOW IVP SCH (08:57)
[2021-10-25] MEDS ORDERED: Potassium Phosphate 15 MMOL in Sodium Chloride 0.9% 100 ML IVPB SCH (09:00)
[2021-10-25] MEDS: Famotidine 20 MG TAB PO SCH (20:14)
[2021-10-26] MEDS: Ketorolac Tromethamine 30 MG/ML VIAL IVP PRN ×2 (00:06→06:30)
[2021-10-26] MEDS: Sodium Chloride 0.9% 1,000 ML IV SCH ×2 (02:06→09:49)
[2021-10-26] MEDS: Morphine 2 MG/ML VIAL SLOW IVP PRN (03:15)
[2021-10-26 07:57] VITALS: BP 148/77; TEMP 98.2
[2021-10-26 08:28] LABS: Anion Gap 11 mmol/L (10-20); BUN (Urea Nitrogen) 8 mg/dL (8.9-20.6); Calc. Creatinine Clearance 209 mL/min (70-130); Calcium 8.4 mg/dL (7.8-10.44); Carbon Dioxide 24 mmol/L (22-29); Chloride 106 mmol/L (98-107); Glucose 87 mg/dL (70-105); Lipase 83 U/L (8-78); Potassium 3.2 mmol/L (3.5-5.1); Sodium 138 mmol/L (136-145)
[2021-10-26] MEDS: Famotidine 20 MG TAB PO SCH (08:51)
[2021-10-26] MEDS ORDERED: Multivit, Therapeutic 1 TAB PO SCH (09:00)
[2021-10-26] MEDS ORDERED: Folic Acid 1 MG TAB PO SCH (09:00)
[2021-10-26] MEDS ORDERED: Thiamine 100 MG TAB PO SCH (09:00)
[2021-10-26] MEDS ORDERED: Potassium Chloride 20 MEQ TAB PO SCH (09:00)
== END 2021-10-26 16:00 | disposition home or self-care (01) | DRG 439 ==
LOC: ERS 17:49 → T4-A 21:41 → OBSVTOIN 10-23 09:40
PROVIDERS: ADMIT Internal Medicine; ATTEND Internal Medicine
DX: K85.20 Alcohol induced acute pancreatitis without necrosis or infection (principal); E87.1 Hypo-osmolality and hyponatremia; Z20.822 Contact with and (suspected) exposure to COVID-19; F10.20 Alcohol dependence, uncomplicated; D72.829 Elevated white blood cell count, unspecified; E83.42 Hypomagnesemia; E83.39 Other disorders of phosphorus metabolism; D53.9 Nutritional anemia, unspecified; E86.0 Dehydration; Z83.79 Family history of other diseases of the digestive system; Z71.41 Alcohol abuse counseling and surveillance of alcoholic
CPT/HCPCS: 36415; 74177; 80048; 80053; 83690; 83735; 84100; 85025; 93005; 96365; 96375; 96376; G0378; J1885; J2270; J2405; J2550; J3475; J3490; J7050; Q9967; S0028; U0003; U0005